=== PATIENT | female | born 1930 | race Caucasian/White ===

== ENCOUNTER 2018-10-16 13:18 | Inpatient (IN) | payer MEDICARE ==
[~2018-10-16] VITALS: Ht 160 cm; Wt 43.8 kg
--- NOTE | 2018-10-16 13:45 | NUR ---
DAVIDA RN: PT TRANSPORTED TO CT SCAN VIA [facility].
[2018-10-16] MEDS ORDERED: TRIA1TAB3 PO (13:47)
[2018-10-16] MEDS ORDERED: FLEC50TA25 PO (13:47)
[2018-10-16] MEDS ORDERED: DABI75CA3 PO (13:47)
[2018-10-16] MEDS ORDERED: ACET-1770 PO (13:48)
[2018-10-16] MEDS ORDERED: ACET-1757 PO (13:49)
--- NOTE | 2018-10-16 13:49 | NUR ---
DAVIDA RN: MED REC COMPLETED AND VERIFIED WITH DAUGHTER (RAMO).
[2018-10-16] MEDS ORDERED: ONDANSETRON 2MG/ML, 2ML ONE (13:52)
--- NOTE | 2018-10-16 13:56 | NUR ---
DAVIDA RN: PT MEDICATED PER EMAR. REPORT TO PRIMARY BRODY COLLAZO.
[2018-10-16] MEDS ORDERED: ONDANSETRON 2MG/ML, 2ML IVPush ONE (14:00)
[2018-10-16 14:20] LABS: BASOPHILS # (AUTO) 0.03 x10^3/uL (0-0.1); BASOPHILS % (AUTO) 1 % (0-1); EOSINOPHILS # (AUTO) 0.03 x10^3/uL (0-0.4); EOSINOPHILS % (AUTO) 0 % (1-7); LYMPHOCYTES # (AUTO) 1.18 x10^3/uL (1-3.4); LYMPHOCYTES % (AUTO) 16 % (22-44); MD NO; MEAN CORPUSCULAR HEMOGLOBIN 29.7 pg (27.0-34.8); MEAN CORPUSCULAR HGB CONC 33.2 g/dL (32.4-35.8); MEAN CORPUSCULAR VOLUME 89.7 fL (80-100); MEAN PLATELET VOLUME 6.9 fL (7.4-10.4); MONOCYTES # (AUTO) 0.44 x10^3/uL (0.2-0.8); MONOCYTES % (AUTO) 6 % (2-9); NEUTROPHILS # (AUTO) 5.66 x10^3/uL (1.8-6.8); NEUTROPHILS % (AUTO) 77 % (42-75); PLATELET COUNT 283 x10^3/uL (130-400); RED BLOOD COUNT 3.88 x10^6/uL (3.82-5.3); RED CELL DISTRIBUTION WIDTH 13.1 % (9.6-15.2)
--- NOTE | 2018-10-16 14:28 | NUR ---
PT RESTING QUIETLY ON BED. DAUGHTER & SON-IN-LAW BS. PER DAUGHTER: PT C/O AHYWOOD & VISION DIFFICULTY THEN SYNCOPAL EPISODE AT LUNCH, NO LOC, EMS CALLED, PT VOMITED. PT HAD DENTAL WORK THIS AM. WAS EATING LUNCH OUTSIDE IN THE SUN. PT DOZING - EASILY AWAKEND, ORIENTS X3, RESP EVEN & UNLABORED. C/O DIZZINESS AND NAUSEA. CARDIAC & VS MONITORING CONTINUING: NSR.
[2018-10-16 14:30] LABS: ALBUMIN 3.2 g/dL (3.4-5.0); ANION GAP 7 mmol/L (5-15); CALCIUM 9.2 mg/dL (8.5-10.1); CHLORIDE 101 mmol/L (98-107)
[2018-10-16 14:33] LABS: INTERNATIONAL NORMALIZED RATIO 1.02 (0.93-1.1); PROTHROMBIN TIME 10.7 Seconds (9.6-11.5)
[2018-10-16 14:34] LABS: ALANINE AMINOTRANSFERASE 18 U/L (12-78); ALKALINE PHOSPHATASE 42 U/L (45-117); BILIRUBIN,TOTAL 0.7 mg/dL (0.2-1.0); CREATININE 1.18 mg/dL (0.55-1.02); TOTAL PROTEIN 6.1 g/dL (6.4-8.2)
--- NOTE | 2018-10-16 16:31 | NUR ---
[facility] PTS TWO SONS IN ROOM.
--- NOTE | 2018-10-16 16:40 | NUR ---
PT REPORT TO BRODY HARRINGTON FOR ROOM 525
[2018-10-16] MEDS ORDERED: POTASSIUM CHLORIDE 20 MEQ TAB.ER.PRT PO ONE (17:30)
[2018-10-16] MEDS ORDERED: ONDANSETRON 2MG/ML, 2ML IVPush PRN (17:30)
[2018-10-16] MEDS ORDERED: DOCUSATE 100 MG CAPSULE PO PRN (17:30)
[2018-10-16] MEDS ORDERED: ACETAMINOPHEN 325 MG TABLET PO PRN (17:30)
[2018-10-16 17:36] VITALS: BP 169/67
[2018-10-16 18:01] VITALS: BP_SYST 101; BP_SYST 147; BP_DIAS 64; BP_DIAS 68
[2018-10-16 18:03] VITALS: BP 118/68
[2018-10-16] MEDS: SODIUM CHLORIDE 0.9% 1,000 ML IV SCH (18:23)
[2018-10-16 19:07] LABS: TROPONIN I < 0.015 ng/mL (0.000-0.045)
[2018-10-16 19:54] VITALS: BP 136/57
[2018-10-16 19:57] VITALS: BP 156/64
[2018-10-16 20:00] VITALS: BP 154/67
[2018-10-16] MEDS: ACETAMINOPHEN 500 MG TABLET PO SCH (21:47)
[2018-10-16 23:15] LABS: MICROSCOPIC AUTO
[2018-10-16 23:21] LABS: CULTURE INDICATED? YES
[2018-10-16 23:37] LABS: TROPONIN I < 0.015 ng/mL (0.000-0.045)
[2018-10-16] MEDS: CEFTRIAXONE PMX 1GM/50ML 50 ML IV SCH (23:47)
[2018-10-17] VITALS (7 sets, daily range): BP systolic 97–161; BP diastolic 60–73
[2018-10-17] MEDS: SODIUM CHLORIDE 0.9% 1,000 ML IV SCH (03:01)
[2018-10-17 05:26] LABS: BASOPHILS # (AUTO) 0.02 x10^3/uL (0-0.1); BASOPHILS % (AUTO) 0 % (0-1); EOSINOPHILS # (AUTO) 0.19 x10^3/uL (0-0.4); EOSINOPHILS % (AUTO) 2 % (1-7); LYMPHOCYTES # (AUTO) 1.66 x10^3/uL (1-3.4); LYMPHOCYTES % (AUTO) 22 % (22-44); MD NO; MEAN CORPUSCULAR HEMOGLOBIN 30.4 pg (27.0-34.8); MEAN CORPUSCULAR HGB CONC 33.3 g/dL (32.4-35.8); MEAN CORPUSCULAR VOLUME 91.3 fL (80-100); MEAN PLATELET VOLUME 7.3 fL (7.4-10.4); MONOCYTES # (AUTO) 0.64 x10^3/uL (0.2-0.8); MONOCYTES % (AUTO) 8 % (2-9); NEUTROPHILS # (AUTO) 5.13 x10^3/uL (1.8-6.8); NEUTROPHILS % (AUTO) 67 % (42-75); PLATELET COUNT 262 x10^3/uL (130-400); RED CELL DISTRIBUTION WIDTH 12.4 % (9.6-15.2)
[2018-10-17 05:35] LABS: CHLORIDE 103 mmol/L (98-107)
[2018-10-17 06:01] LABS: ALANINE AMINOTRANSFERASE 17 U/L (12-78); ALBUMIN 2.9 g/dL (3.4-5.0); ALKALINE PHOSPHATASE 40 U/L (45-117); ANION GAP 6 mmol/L (5-15); BILIRUBIN,TOTAL 0.4 mg/dL (0.2-1.0); CREATININE 0.87 mg/dL (0.55-1.02); TOTAL PROTEIN 5.7 g/dL (6.4-8.2)
[2018-10-17] MEDS: DABIGATRAN 75 MG CAPSULE PO SCH (08:33)
[2018-10-17] MEDS: ACETAMINOPHEN 500 MG TABLET PO SCH ×2 (08:33→20:08)
[2018-10-17] MEDS: FLECAINIDE 50MG TABLET PO SCH (08:34)
[2018-10-17] MEDS ORDERED: TRIAMTERENE-HCTZ 37.5/25 MG TABLET PO SCH (09:00)
[2018-10-17] MEDS ORDERED: POTASSIUM PHOSPHATE 22 MEQ in SODIUM CHLORIDE 0.9% 500 ML IV ONE (10:00)
[2018-10-17] MEDS ORDERED: MECLIZINE 12.5 MG TABLET PO PRN (13:30)
[2018-10-17] MEDS: LISINOPRIL 10 MG TABLET PO SCH ×2 (18:05→18:54)
[2018-10-17] MEDS ORDERED: LISINOPRIL 10 MG TABLET PO SCH (21:00)
[2018-10-18] VITALS (7 sets, daily range): BP systolic 95–161; BP diastolic 48–72
[2018-10-18] MEDS: CEFTRIAXONE PMX 1GM/50ML 50 ML IV SCH (00:04)
[2018-10-18 05:58] LABS: CHLORIDE 103 mmol/L (98-107)
[2018-10-18 06:03] LABS: ALANINE AMINOTRANSFERASE 15 U/L (12-78); ALBUMIN 2.9 g/dL (3.4-5.0); ALKALINE PHOSPHATASE 40 U/L (45-117); ANION GAP 5 mmol/L (5-15); BILIRUBIN,TOTAL 1.6 mg/dL (0.2-1.0); CREATININE 0.91 mg/dL (0.55-1.02); TOTAL PROTEIN 5.9 g/dL (6.4-8.2)
[2018-10-18] MEDS ORDERED: ZOSYN PER PHARMACY MC PRN (08:30)
[2018-10-18] MEDS: ACETAMINOPHEN 500 MG TABLET PO SCH ×2 (08:51→21:06)
[2018-10-18] MEDS: DABIGATRAN 75 MG CAPSULE PO SCH (08:51)
[2018-10-18] MEDS: FLECAINIDE 50MG TABLET PO SCH (08:52)
[2018-10-18] MEDS: LISINOPRIL 10 MG TABLET PO SCH ×2 (08:52→21:06)
[2018-10-18] MEDS ORDERED: PIPERACILLIN/TAZO/PMX 3.375GM 50 ML IV SCH (10:00)
[2018-10-18] MEDS: MIDODRINE 5 MG TABLET PO SCH ×2 (16:12→21:06)
[2018-10-18] MEDS: CEFDINIR 300 MG CAPSULE PO SCH (21:06)
[2018-10-19 02:53] VITALS: BP 161/62
[2018-10-19] MEDS: LISINOPRIL 10 MG TABLET PO SCH (08:35)
[2018-10-19] MEDS: FLECAINIDE 50MG TABLET PO SCH (08:35)
[2018-10-19] MEDS: CEFDINIR 300 MG CAPSULE PO SCH (08:36)
[2018-10-19] MEDS: ACETAMINOPHEN 500 MG TABLET PO SCH (08:36)
[2018-10-19] MEDS: DABIGATRAN 75 MG CAPSULE PO SCH (08:36)
[2018-10-19 08:50] VITALS: BP 165/65
[2018-10-19] MEDS: MIDODRINE 5 MG TABLET PO SCH (08:50)
[2018-10-19 10:10] VITALS: BP 135/61
[2018-10-19 10:15] VITALS: BP 144/61
[2018-10-19 10:17] VITALS: BP 146/58
[2018-10-19] MEDS ORDERED: CEFD300C37 PO ×2 (10:46)
[2018-10-19] MEDS ORDERED: MIDO5TAB9 PO ×2 (10:46)
[2018-10-19] MEDS ORDERED: LISI-167 PO ×2 (10:46)
[2018-10-20] MEDS ORDERED: CEFDINIR 300 MG CAPSULE PO SCH (09:00)
== END 2018-10-19 14:26 | disposition home or self-care (01) | DRG 682 ==
LOC: ED 15:05 → EDIP 15:15 → 5SO 17:41
PROVIDERS: ADMIT Internal Medicine; ATTEND Internal Medicine
PROC: 0T9B70Z Drainage of Bladder with Drainage Device, Via Natural or Artificial Opening (ICD-10-PCS; principal; 2018-10-16)
DX: N17.0 Acute kidney failure with tubular necrosis (principal); G93.41 Metabolic encephalopathy; D68.69 Other thrombophilia; E87.1 Hypo-osmolality and hyponatremia; N39.0 Urinary tract infection, site not specified; G90.9 Disorder of the autonomic nervous system, unspecified; I95.1 Orthostatic hypotension; B96.20 Unspecified Escherichia coli [E. coli] as the cause of diseases classified elsewhere; E83.39 Other disorders of phosphorus metabolism; E86.0 Dehydration; E87.6 Hypokalemia; I10 Essential (primary) hypertension; I25.10 Atherosclerotic heart disease of native coronary artery without angina pectoris; I48.91 Unspecified atrial fibrillation; M19.90 Unspecified osteoarthritis, unspecified site; M54.10 Radiculopathy, site unspecified; Z79.02 Long term (current) use of antithrombotics/antiplatelets; Z80.1 Family history of malignant neoplasm of trachea, bronchus and lung; Z87.891 Personal history of nicotine dependence
CPT/HCPCS: 0399T; 36415; 70450; 71045; 80053; 81001; 82533; 83735; 84100; 84443; 84484; 85025; 85610; 85730; 87077; 87086; 87186; 93005; 93306; 96374; 99285; G0378; J0696; J2405; J2543; J7030; J7040

== ENCOUNTER 2018-10-20 09:05 | Inpatient (IN) | payer MEDICARE ==
[~2018-10-20] VITALS: Ht 157.5 cm; Wt 49.0 kg
[~2018-10-20 09:05] MED LIST: ACET-1757 PO; ACET-1770 PO; CEFD300C37 PO; DABI75CA3 PO; FLEC50TA25 PO; LISI-167 PO; MIDO5TAB9 PO; TRIA1TAB3 PO
[2018-10-20] MEDS ORDERED: DILTIAZEM 5 MG/ML, 5ML IVPush STA ×2 (09:15→10:53)
[2018-10-20] MEDS ORDERED: DILTIAZEM 5 MG/ML, 5ML ONE ×2 (09:29→11:06)
[2018-10-20] MEDS ORDERED: ASPIRIN 81 MG TABLET CHEW PO ONE (09:30)
[2018-10-20] MEDS ORDERED: DABIGATRAN 150 MG CAPSULE PO ONE (09:30)
[2018-10-20] MEDS ORDERED: ASPIRIN 81 MG TABLET CHEW ONE (09:30)
[2018-10-20] MEDS ORDERED: SODIUM CHLORIDE FLUSH 10ML SYR IVF ONE (09:30)
--- NOTE | 2018-10-20 09:43 | NUR ---
PT BIB EMS FOR AFIB RVR RATE 140-180. PATIENT AWAKE, ALERT AND ORIENTED. ANSWEREING RN QUESTIONS. RECENTLY DC FOR UTI ON ABX, AFIB RVR. Jessica PERDOMO, CARDIAC MONITR APPLIED, PATIENT HAS DIARRHEA. HR 180S. BP STABLE. MEDICATED PER MD ORDERS. FAMILY AT BEDSIDE.
[2018-10-20 09:44] LABS: BASOPHILS # (AUTO) 0.08 x10^3/uL (0-0.1); BASOPHILS % (AUTO) 1 % (0-1); EOSINOPHILS # (AUTO) 0.11 x10^3/uL (0-0.4); EOSINOPHILS % (AUTO) 2 % (1-7); LYMPHOCYTES # (AUTO) 1.49 x10^3/uL (1-3.4); LYMPHOCYTES % (AUTO) 22 % (22-44); MD NO; MEAN CORPUSCULAR HEMOGLOBIN 30.6 pg (27.0-34.8); MEAN CORPUSCULAR HGB CONC 33.4 g/dL (32.4-35.8); MEAN CORPUSCULAR VOLUME 91.6 fL (80-100); MEAN PLATELET VOLUME 7.5 fL (7.4-10.4); MONOCYTES # (AUTO) 0.55 x10^3/uL (0.2-0.8); MONOCYTES % (AUTO) 8 % (2-9); NEUTROPHILS # (AUTO) 4.48 x10^3/uL (1.8-6.8); NEUTROPHILS % (AUTO) 67 % (42-75); PLATELET COUNT 282 x10^3/uL (130-400); RED BLOOD COUNT 4.35 x10^6/uL (3.82-5.3)
[2018-10-20 09:46] LABS: MICROSCOPIC NOT IND
[2018-10-20 09:47] LABS: CULTURE INDICATED? NO
--- NOTE | 2018-10-20 09:50 | NUR ---
PT RESTING COMFORTABLE, DENIES ANY PAIN HR DECREASED 90'S. BLANKET AND PILLOW GIVEN. FAMILY AT BS, VERBALIZED NO OTHER NEEDS AT THIS TIME
[2018-10-20 09:55] LABS: ALANINE AMINOTRANSFERASE 21 U/L (12-78); ALBUMIN 3.2 g/dL (3.4-5.0); ANION GAP 5 mmol/L (5-15); CALCIUM 9.4 mg/dL (8.5-10.1); CHLORIDE 102 mmol/L (98-107); CREATININE 0.86 mg/dL (0.55-1.02)
[2018-10-20 10:00] LABS: ALKALINE PHOSPHATASE 44 U/L (45-117); BILIRUBIN,TOTAL 0.4 mg/dL (0.2-1.0); TOTAL PROTEIN 6.4 g/dL (6.4-8.2); TROPONIN I < 0.015 ng/mL (0.000-0.045)
[2018-10-20] MEDS ORDERED: DABIGATRAN 75 MG CAPSULE PO ONE (10:00)
[2018-10-20] MEDS ORDERED: FLECAINIDE 50MG TABLET PO ONE (10:00)
--- NOTE | 2018-10-20 10:15 | NUR ---
CALLED PHARMACY FOR NEW DOSE OF PRADAXA
--- NOTE | 2018-10-20 10:39 | NUR ---
PT AMBULATED TO [facility] [place] WITH [place]IST. VOIDED AND BM
[2018-10-20 10:40] LABS: OCCULT BLOOD NEGATIVE (NEGATIVE)
[2018-10-20 10:50] LABS: CLOSTRIDIUM DIFFICILE ANTIGEN NEGATIVE; CLOSTRIDIUM DIFFICILE TOXIN NEGATIVE (Negative)
[2018-10-20] MEDS: DILTIAZEM 125 MG in SODIUM CHLORIDE 0.9% 100 ML IV SCH ×2 (11:19→21:06)
--- NOTE | 2018-10-20 11:25 | NUR ---
MEDICATED PER MD ORDER 16 MG OF DILT AND DILT GTT. HR IN 30S. MD AWARE, AT BEDSIDE. PACER PADS APPLIED. WAITING FOR FURTHER ORDERS. PT ALERT ORIENTED AND TALKING. PT FELT DIZZY AND WEAK
[2018-10-20] MEDS ORDERED: SODIUM CHLORIDE 0.9% 1,000 ML IV SCH (11:30)
[2018-10-20] MEDS ORDERED: SODIUM CHLORIDE 0.9%, 500ML IVBOLUS ONE (11:30)
[2018-10-20] MEDS: FLECAINIDE 50MG TABLET PO SCH ×2 (11:30→22:01)
--- NOTE | 2018-10-20 11:30 | NUR ---
500 ML BOLUS INFUSING. SECOND IV BEING ESTABLISHED. PT AWAKE AND ORIENTED. FAMILY AT BEDSIDE. HR IN 50S, ATROPINE AT BEDSIDE. PACE PADS APPLIED
--- NOTE | 2018-10-20 11:39 | NUR ---
DILT GTT STOPPED AT 1125
--- NOTE | 2018-10-20 11:57 | NUR ---
REPORT GIVEN HUEY. NO FURTHER QUESTIONS. PT READY FOR TRANSFER
[2018-10-20 12:07] LABS: TROPONIN I 0.016 ng/mL (0.000-0.045)
[2018-10-20 12:33] VITALS: BP 150/67
[2018-10-20] MEDS ORDERED: HEPARIN 5,000 UNITS/ML, 1ML IV PRN (13:00)
[2018-10-20] MEDS: HEPARIN 25,000 UNITS/500ML PMX 500 ML IV PRN (15:03)
[2018-10-20] MEDS: MIDODRINE 5 MG TABLET PO SCH ×2 (15:40→21:00)
[2018-10-20 17:46] LABS: TROPONIN I 0.027 ng/mL (0.000-0.045)
[2018-10-20 19:52] VITALS: BP 157/68
[2018-10-20] MEDS: ACETAMINOPHEN 500 MG TABLET PO SCH (21:06)
[2018-10-21 01:37] VITALS: BP 116/44
[2018-10-21 04:35] LABS: ALANINE AMINOTRANSFERASE 26 U/L (12-78); ALBUMIN 2.6 g/dL (3.4-5.0); ANION GAP 8 mmol/L (5-15); CALCIUM 8.9 mg/dL (8.5-10.1); CHLORIDE 107 mmol/L (98-107); CREATININE 0.93 mg/dL (0.55-1.02)
[2018-10-21 04:45] LABS: ALKALINE PHOSPHATASE 42 U/L (45-117); BILIRUBIN,TOTAL 0.2 mg/dL (0.2-1.0); TOTAL PROTEIN 5.5 g/dL (6.4-8.2)
[2018-10-21] MEDS: ASPIRIN 81 MG TABLET EC PO SCH (04:45)
[2018-10-21 04:57] LABS: BASOPHILS # (AUTO) 0.09 x10^3/uL (0-0.1); BASOPHILS % (AUTO) 1 % (0-1); EOSINOPHILS # (AUTO) 0.22 x10^3/uL (0-0.4); EOSINOPHILS % (AUTO) 3 % (1-7); LYMPHOCYTES # (AUTO) 2.07 x10^3/uL (1-3.4); LYMPHOCYTES % (AUTO) 28 % (22-44); MD NO; MEAN CORPUSCULAR HEMOGLOBIN 30.4 pg (27.0-34.8); MEAN CORPUSCULAR VOLUME 92.3 fL (80-100); MONOCYTES # (AUTO) 0.66 x10^3/uL (0.2-0.8); MONOCYTES % (AUTO) 9 % (2-9); NEUTROPHILS # (AUTO) 4.42 x10^3/uL (1.8-6.8); NEUTROPHILS % (AUTO) 59 % (42-75); PLATELET COUNT 241 x10^3/uL (130-400); RED BLOOD COUNT 3.57 x10^6/uL (3.82-5.3); RED CELL DISTRIBUTION WIDTH 13.3 % (9.6-15.2)
[2018-10-21 07:45] VITALS: BP 166/64
[2018-10-21] MEDS: ACETAMINOPHEN 500 MG TABLET PO SCH ×2 (09:14→20:27)
[2018-10-21] MEDS: MORPHINE SULFATE 4 MG/ML, 1ML IVPush PRN (10:06)
[2018-10-21 13:17] VITALS: BP 169/71
[2018-10-21] MEDS: FLECAINIDE 50MG TABLET PO SCH ×2 (13:51→23:08)
[2018-10-21 20:03] VITALS: BP 149/62
[2018-10-21] MEDS: HEPARIN 25,000 UNITS/500ML PMX 500 ML IV PRN (23:09)
[2018-10-22] VITALS (9 sets, daily range): BP systolic 85–179; BP diastolic 43–71
[2018-10-22 05:04] LABS: ALBUMIN 2.9 g/dL (3.4-5.0); ANION GAP 8 mmol/L (5-15); CALCIUM 9.5 mg/dL (8.5-10.1); CHLORIDE 103 mmol/L (98-107)
[2018-10-22 05:09] LABS: ALANINE AMINOTRANSFERASE 42 U/L (12-78); ALKALINE PHOSPHATASE 46 U/L (45-117); BILIRUBIN,TOTAL 0.7 mg/dL (0.2-1.0); CREATININE 0.95 mg/dL (0.55-1.02); TOTAL PROTEIN 6.2 g/dL (6.4-8.2)
[2018-10-22 05:14] LABS: BASOPHILS # (AUTO) 0.06 x10^3/uL (0-0.1); BASOPHILS % (AUTO) 1 % (0-1); EOSINOPHILS # (AUTO) 0.31 x10^3/uL (0-0.4); EOSINOPHILS % (AUTO) 4 % (1-7); LYMPHOCYTES # (AUTO) 2.24 x10^3/uL (1-3.4); LYMPHOCYTES % (AUTO) 29 % (22-44); MD NO; MEAN CORPUSCULAR HEMOGLOBIN 30.7 pg (27.0-34.8); MEAN CORPUSCULAR HGB CONC 33.8 g/dL (32.4-35.8); MEAN CORPUSCULAR VOLUME 90.7 fL (80-100); MEAN PLATELET VOLUME 7.9 fL (7.4-10.4); MONOCYTES # (AUTO) 0.76 x10^3/uL (0.2-0.8); MONOCYTES % (AUTO) 10 % (2-9); NEUTROPHILS % (AUTO) 57 % (42-75); PLATELET COUNT 271 x10^3/uL (130-400); RED BLOOD COUNT 3.73 x10^6/uL (3.82-5.3); RED CELL DISTRIBUTION WIDTH 13.6 % (9.6-15.2)
[2018-10-22] MEDS: ASPIRIN 81 MG TABLET EC PO SCH (06:00)
[2018-10-22] MEDS ORDERED: REGADENOSON 0.4 MG/5 ML SYRINGE ONE (09:01)
[2018-10-22] MEDS ORDERED: OMNIPAQUE 350 MG/ML, 100ML BOTTLE ONE (09:34)
[2018-10-22] MEDS ORDERED: MAGNESIUM CITRATE 300ML ORAL SOL PO ONE ×2 (10:30→17:30)
[2018-10-22] MEDS: LISINOPRIL 5 MG TABLET PO SCH (11:37)
[2018-10-22] MEDS: ACETAMINOPHEN 500 MG TABLET PO SCH ×2 (11:37→20:51)
[2018-10-22] MEDS: AMLODIPINE 5 MG TABLET PO SCH (11:37)
[2018-10-22] MEDS ORDERED: SODIUM CHLORIDE 0.9%, 500ML IVBOLUS ONE (20:30)
[2018-10-22] MEDS: APIXABAN 5 MG TABLET PO SCH (20:51)
[2018-10-22] MEDS ORDERED: APIXABAN 5 MG TABLET PO SCH (21:00)
[2018-10-23] VITALS (7 sets, daily range): BP systolic 103–133; BP diastolic 44–72
[2018-10-23] MEDS: MORPHINE SULFATE 4 MG/ML, 1ML IVPush PRN ×4 (02:57→17:40)
[2018-10-23] MEDS ORDERED: DIPHENHYDRAMINE 25 MG CAPSULE PO PRN (05:00)
[2018-10-23 06:40] LABS: ALBUMIN 2.8 g/dL (3.4-5.0); ANION GAP 6 mmol/L (5-15); CALCIUM 9.3 mg/dL (8.5-10.1); CHLORIDE 102 mmol/L (98-107)
[2018-10-23 06:44] LABS: ALANINE AMINOTRANSFERASE 45 U/L (12-78); ALKALINE PHOSPHATASE 39 U/L (45-117); BILIRUBIN,TOTAL 0.4 mg/dL (0.2-1.0); CREATININE 0.99 mg/dL (0.55-1.02); TOTAL PROTEIN 5.6 g/dL (6.4-8.2)
[2018-10-23 07:42] LABS: BASOPHILS # (AUTO) 0.05 x10^3/uL (0-0.1); BASOPHILS % (AUTO) 1 % (0-1); EOSINOPHILS # (AUTO) 0.04 x10^3/uL (0-0.4); EOSINOPHILS % (AUTO) 1 % (1-7); LYMPHOCYTES % (AUTO) 16 % (22-44); MD NO; MEAN CORPUSCULAR HEMOGLOBIN 29.4 pg (27.0-34.8); MEAN CORPUSCULAR HGB CONC 32.6 g/dL (32.4-35.8); MEAN CORPUSCULAR VOLUME 90.2 fL (80-100); MEAN PLATELET VOLUME 7.2 fL (7.4-10.4); MONOCYTES # (AUTO) 0.66 x10^3/uL (0.2-0.8); MONOCYTES % (AUTO) 8 % (2-9); NEUTROPHILS # (AUTO) 6.25 x10^3/uL (1.8-6.8); NEUTROPHILS % (AUTO) 75 % (42-75); PLATELET COUNT 268 x10^3/uL (130-400); RED CELL DISTRIBUTION WIDTH 13.5 % (9.6-15.2)
[2018-10-23] MEDS: ACETAMINOPHEN 500 MG TABLET PO SCH ×2 (09:00→21:02)
[2018-10-23] MEDS: APIXABAN 5 MG TABLET PO SCH (09:00)
[2018-10-23] MEDS ORDERED: DABIGATRAN 75 MG CAPSULE PO SCH (09:00)
[2018-10-23] MEDS: AMLODIPINE 5 MG TABLET PO SCH (09:00)
[2018-10-23] MEDS: LISINOPRIL 5 MG TABLET PO SCH (09:00)
[2018-10-23] MEDS: ASPIRIN 81 MG TABLET EC PO SCH (09:00)
[2018-10-23] MEDS: AMIODARONE 200 MG TABLET PO SCH ×2 (10:15→21:02)
[2018-10-24 02:52] VITALS: BP 107/54
[2018-10-24] MEDS: ACETAMINOPHEN 325 MG TABLET PO PRN (06:48)
[2018-10-24 07:45] VITALS: BP 109/63
[2018-10-24] MEDS: MORPHINE SULFATE 4 MG/ML, 1ML IVPush PRN ×3 (07:53→21:34)
[2018-10-24] MEDS: AMIODARONE 200 MG TABLET PO SCH ×2 (07:53→21:34)
[2018-10-24] MEDS: AMLODIPINE 5 MG TABLET PO SCH (09:00)
[2018-10-24] MEDS: LISINOPRIL 5 MG TABLET PO SCH (09:00)
[2018-10-24 14:08] VITALS: BP 108/41
[2018-10-24 18:50] VITALS: BP 109/45
[2018-10-24 21:28] VITALS: BP 117/51
[2018-10-24] MEDS: GUAIFENESIN/DM 200-20MG, 10ML UDC PO PRN (21:32)
[2018-10-25 01:37] VITALS: BP 101/49
[2018-10-25] MEDS: ACETAMINOPHEN 325 MG TABLET PO PRN (01:43)
[2018-10-25 02:58] VITALS: BP 111/51
[2018-10-25] MEDS: MORPHINE SULFATE 4 MG/ML, 1ML IVPush PRN ×4 (03:06→20:22)
[2018-10-25 07:51] VITALS: BP 100/38
[2018-10-25] MEDS: AMLODIPINE 5 MG TABLET PO SCH (08:58)
[2018-10-25] MEDS: AMIODARONE 200 MG TABLET PO SCH ×2 (08:58→20:22)
[2018-10-25] MEDS: LISINOPRIL 5 MG TABLET PO SCH (08:59)
[2018-10-25 09:10] VITALS: BP 105/46
[2018-10-25] MEDS ORDERED: SODIUM CHLORIDE 0.9%, 250ML IVBOLUS ONE (09:30)
[2018-10-25] MEDS: GUAIFENESIN/DM 200-20MG, 10ML UDC PO PRN (09:39)
[2018-10-25 13:07] VITALS: BP 107/46
[2018-10-25] MEDS: GUAIFENESIN/DM 200-20MG, 10ML UDC PO SCH ×2 (14:16→20:21)
[2018-10-25 20:16] VITALS: BP 121/63
[2018-10-26 02:41] VITALS: BP 120/47
[2018-10-26] MEDS: GUAIFENESIN/DM 200-20MG, 10ML UDC PO SCH ×4 (02:47→21:36)
[2018-10-26] MEDS: MORPHINE SULFATE 4 MG/ML, 1ML IVPush PRN (02:55)
[2018-10-26] MEDS: AMIODARONE 200 MG TABLET PO SCH ×2 (09:38→21:36)
[2018-10-26] MEDS: ACETAMINOPHEN 325 MG TABLET PO PRN ×3 (09:38→21:36)
[2018-10-26] MEDS: AMLODIPINE 5 MG TABLET PO SCH (09:38)
[2018-10-26] MEDS: LISINOPRIL 5 MG TABLET PO SCH (09:38)
[2018-10-26 09:44] VITALS: BP 106/49
[2018-10-26 15:28] VITALS: BP 93/43
[2018-10-26 15:38] VITALS: BP 105/50
[2018-10-26 20:07] VITALS: BP 127/63
[2018-10-27 03:20] VITALS: BP 133/56
[2018-10-27] MEDS: ACETAMINOPHEN 325 MG TABLET PO PRN ×2 (03:48→12:20)
[2018-10-27] MEDS: GUAIFENESIN/DM 200-20MG, 10ML UDC PO SCH ×4 (03:48→21:24)
[2018-10-27 07:30] VITALS: BP 128/55
[2018-10-27] MEDS: MORPHINE SULFATE 4 MG/ML, 1ML IVPush PRN (07:55)
[2018-10-27] MEDS: ONDANSETRON 2MG/ML, 2ML IVPush PRN (08:00)
[2018-10-27 09:07] LABS: ALANINE AMINOTRANSFERASE 43 U/L (12-78); ALBUMIN 2.3 g/dL (3.4-5.0); ANION GAP 6 mmol/L (5-15); CALCIUM 9.1 mg/dL (8.5-10.1); CHLORIDE 96 mmol/L (98-107); CREATININE 0.86 mg/dL (0.55-1.02)
[2018-10-27 09:09] LABS: ALKALINE PHOSPHATASE 60 U/L (45-117); BILIRUBIN,TOTAL 0.7 mg/dL (0.2-1.0); TOTAL PROTEIN 5.6 g/dL (6.4-8.2)
[2018-10-27] MEDS: AMLODIPINE 5 MG TABLET PO SCH (10:49)
[2018-10-27] MEDS: AMIODARONE 200 MG TABLET PO SCH ×2 (10:49→21:23)
[2018-10-27] MEDS: LISINOPRIL 5 MG TABLET PO SCH (10:51)
[2018-10-27 13:29] VITALS: BP 103/50
[2018-10-27 13:35] LABS: O2 FLOW 11 L/min
[2018-10-27] MEDS ORDERED: FUROSEMIDE 20 MG/2 ML IV ONE ×2 (14:00→14:30)
[2018-10-27 21:12] VITALS: BP 103/50
[2018-10-28 01:36] VITALS: BP 112/54
[2018-10-28] MEDS: GUAIFENESIN/DM 200-20MG, 10ML UDC PO SCH ×4 (05:35→21:33)
[2018-10-28 05:45] LABS: CHLORIDE 94 mmol/L (98-107)
[2018-10-28 05:50] LABS: ANION GAP 8 mmol/L (5-15)
[2018-10-28 08:18] VITALS: BP 109/49
[2018-10-28] MEDS: NEUTRA PHOS K 250 MG TABLET PO SCH ×3 (08:27→21:32)
[2018-10-28] MEDS: LISINOPRIL 5 MG TABLET PO SCH (08:28)
[2018-10-28] MEDS: AMIODARONE 200 MG TABLET PO SCH (08:28)
[2018-10-28] MEDS ORDERED: FUROSEMIDE 40 MG/4 ML IV SCH (09:00)
[2018-10-28] MEDS: AMLODIPINE 5 MG TABLET PO SCH (10:29)
[2018-10-28 11:00] VITALS: BP 100/60
[2018-10-28] MEDS: CEFTRIAXONE PMX 1GM/50ML 50 ML IV SCH (11:43)
[2018-10-28] MEDS: DOXYCYCLINE 100MG TABLET PO SCH ×2 (11:43→21:32)
[2018-10-28 13:21] VITALS: BP 105/51
[2018-10-28] MEDS: ONDANSETRON 2MG/ML, 2ML IVPush PRN (15:45)
[2018-10-28 15:51] VITALS: BP 122/61
[2018-10-28] MEDS: FUROSEMIDE 40 MG/4 ML IV SCH (18:18)
[2018-10-28] MEDS: ACETAMINOPHEN 325 MG TABLET PO PRN (18:36)
[2018-10-28 20:01] VITALS: BP 130/62
[2018-10-29] MEDS: GUAIFENESIN/DM 200-20MG, 10ML UDC PO SCH ×4 (03:17→20:43)
[2018-10-29 03:23] VITALS: BP 120/60
[2018-10-29 06:06] LABS: BASOPHILS # (AUTO) 0.03 x10^3/uL (0-0.1); BASOPHILS % (AUTO) 0 % (0-1); EOSINOPHILS # (AUTO) 0.23 x10^3/uL (0-0.4); EOSINOPHILS % (AUTO) 2 % (1-7); LYMPHOCYTES # (AUTO) 1.04 x10^3/uL (1-3.4); LYMPHOCYTES % (AUTO) 10 % (22-44); MD NO; MEAN CORPUSCULAR HEMOGLOBIN 30.2 pg (27.0-34.8); MEAN CORPUSCULAR HGB CONC 33.4 g/dL (32.4-35.8); MEAN CORPUSCULAR VOLUME 90.4 fL (80-100); MEAN PLATELET VOLUME 7.4 fL (7.4-10.4); MONOCYTES # (AUTO) 1.01 x10^3/uL (0.2-0.8); MONOCYTES % (AUTO) 10 % (2-9); NEUTROPHILS # (AUTO) 8.35 x10^3/uL (1.8-6.8); NEUTROPHILS % (AUTO) 78 % (42-75); PLATELET COUNT 467 x10^3/uL (130-400); RED BLOOD COUNT 2.93 x10^6/uL (3.82-5.3)
[2018-10-29 06:55] VITALS: BP 108/47
[2018-10-29] MEDS: FUROSEMIDE 40 MG/4 ML IV SCH (07:57)
[2018-10-29 08:28] LABS: ANION GAP 8 mmol/L (5-15); CALCIUM 9.4 mg/dL (8.5-10.1); CHLORIDE 91 mmol/L (98-107); CREATININE 1.15 mg/dL (0.55-1.02)
[2018-10-29 08:35] VITALS: BP 106/56
[2018-10-29] MEDS ORDERED: AMLODIPINE 2.5 MG TABLET PO SCH (09:00)
[2018-10-29] MEDS ORDERED: FILTER 0.22 MICRON FOR AMIODARONE IV PRN (09:00)
[2018-10-29] MEDS ORDERED: AMIODARONE 150 MG in DEXTROSE 5% 100 ML IV ONE (09:00)
[2018-10-29] MEDS ORDERED: AMIODARONE IN D5W 100 ML IV ONE (09:00)
[2018-10-29] MEDS: DOXYCYCLINE 100MG TABLET PO SCH ×2 (09:09→20:42)
[2018-10-29] MEDS: AMIODARONE 200 MG TABLET PO SCH (09:09)
[2018-10-29] MEDS: NEUTRA PHOS K 250 MG TABLET PO SCH ×3 (09:09→20:42)
[2018-10-29] MEDS: ACETAMINOPHEN 325 MG TABLET PO PRN ×2 (09:19→15:10)
[2018-10-29 10:10] VITALS: BP 109/55
[2018-10-29] MEDS ORDERED: DIGOXIN 0.25 MG/ML, 2ML IVPush ONE (10:30)
[2018-10-29] MEDS: CEFTRIAXONE PMX 1GM/50ML 50 ML IV SCH (11:51)
[2018-10-29 12:17] VITALS: BP 102/48
[2018-10-29 20:37] VITALS: BP 128/51
[2018-10-30 01:19] VITALS: BP_SYST 108; BP_SYST 112; BP_DIAS 66; BP_DIAS 70
[2018-10-30] MEDS: GUAIFENESIN/DM 200-20MG, 10ML UDC PO SCH ×4 (04:00→21:05)
[2018-10-30 05:14] LABS: ANION GAP 8 mmol/L (5-15); CALCIUM 9.2 mg/dL (8.5-10.1); CHLORIDE 91 mmol/L (98-107)
[2018-10-30] MEDS ORDERED: MAGNESIUM SULFATE PMX 2GM/50ML 50 ML IV ONE (08:30)
[2018-10-30] MEDS ORDERED: AMLODIPINE 2.5 MG TABLET PO SCH (09:00)
[2018-10-30] MEDS: FUROSEMIDE 40 MG TABLET PO SCH (09:04)
[2018-10-30] MEDS: DOXYCYCLINE 100MG TABLET PO SCH ×2 (09:04→21:05)
[2018-10-30] MEDS: NEUTRA PHOS K 250 MG TABLET PO SCH ×3 (09:05→21:05)
[2018-10-30] MEDS: AMIODARONE 200 MG TABLET PO SCH (09:05)
[2018-10-30 09:31] VITALS: BP 137/54
[2018-10-30] MEDS: CEFTRIAXONE PMX 1GM/50ML 50 ML IV SCH (12:03)
[2018-10-30 14:40] VITALS: BP 124/57
[2018-10-30] MEDS: ACETAMINOPHEN 325 MG TABLET PO PRN (16:12)
[2018-10-30 20:38] VITALS: BP 131/69
[2018-10-31 02:02] VITALS: BP 140/61
[2018-10-31] MEDS: GUAIFENESIN/DM 200-20MG, 10ML UDC PO SCH ×4 (04:00→21:12)
[2018-10-31 05:17] LABS: ALANINE AMINOTRANSFERASE 193 U/L (12-78); ALBUMIN 2.2 g/dL (3.4-5.0); ANION GAP 7 mmol/L (5-15); CALCIUM 9.1 mg/dL (8.5-10.1); CHLORIDE 90 mmol/L (98-107); CREATININE 0.81 mg/dL (0.55-1.02)
[2018-10-31 05:20] LABS: ALKALINE PHOSPHATASE 124 U/L (45-117); BILIRUBIN,TOTAL 0.6 mg/dL (0.2-1.0); TOTAL PROTEIN 5.8 g/dL (6.4-8.2)
[2018-10-31 08:25] VITALS: BP 137/54
[2018-10-31] MEDS: FUROSEMIDE 40 MG TABLET PO SCH (09:12)
[2018-10-31] MEDS: NEUTRA PHOS K 250 MG TABLET PO SCH ×3 (09:12→21:12)
[2018-10-31] MEDS: AMIODARONE 200 MG TABLET PO SCH (09:13)
[2018-10-31 15:40] VITALS: BP 115/54
[2018-10-31 20:19] VITALS: BP 156/72
[2018-10-31 21:26] VITALS: BP 150/55
[2018-11-01 01:31] VITALS: BP 135/63
[2018-11-01] MEDS: GUAIFENESIN/DM 200-20MG, 10ML UDC PO SCH ×4 (04:00→21:30)
[2018-11-01 05:34] LABS: ALBUMIN 2.1 g/dL (3.4-5.0); ANION GAP 8 mmol/L (5-15); CHLORIDE 91 mmol/L (98-107)
[2018-11-01 05:38] LABS: ALANINE AMINOTRANSFERASE 146 U/L (12-78); ALKALINE PHOSPHATASE 100 U/L (45-117); BILIRUBIN,TOTAL 0.6 mg/dL (0.2-1.0); CREATININE 0.82 mg/dL (0.55-1.02); TOTAL PROTEIN 5.4 g/dL (6.4-8.2)
[2018-11-01 07:11] VITALS: BP 148/61
[2018-11-01] MEDS: AMIODARONE 200 MG TABLET PO SCH (08:41)
[2018-11-01] MEDS: NEUTRA PHOS K 250 MG TABLET PO SCH ×3 (08:42→16:30)
[2018-11-01] MEDS: FUROSEMIDE 40 MG TABLET PO SCH (08:42)
[2018-11-01 14:39] VITALS: BP 144/56
[2018-11-01 21:04] VITALS: BP 129/50
[2018-11-02 01:18] VITALS: BP 138/53
[2018-11-02] MEDS: GUAIFENESIN/DM 200-20MG, 10ML UDC PO SCH ×4 (04:49→21:54)
[2018-11-02 07:00] LABS: ALBUMIN 2.1 g/dL (3.4-5.0); ANION GAP 7 mmol/L (5-15); CALCIUM 9.4 mg/dL (8.5-10.1); CHLORIDE 94 mmol/L (98-107)
[2018-11-02 07:03] LABS: ALANINE AMINOTRANSFERASE 126 U/L (12-78); ALKALINE PHOSPHATASE 100 U/L (45-117); BILIRUBIN,TOTAL 0.8 mg/dL (0.2-1.0); CREATININE 0.82 mg/dL (0.55-1.02); TOTAL PROTEIN 5.5 g/dL (6.4-8.2)
[2018-11-02] MEDS: FUROSEMIDE 40 MG TABLET PO SCH (09:41)
[2018-11-02] MEDS: AMIODARONE 200 MG TABLET PO SCH (09:41)
[2018-11-02] MEDS: NEUTRA PHOS K 250 MG TABLET PO SCH ×3 (09:42→16:33)
[2018-11-02 12:45] VITALS: BP 116/37
[2018-11-02 18:55] VITALS: BP 138/64
[2018-11-03 00:39] VITALS: BP 124/60
[2018-11-03] MEDS: GUAIFENESIN/DM 200-20MG, 10ML UDC PO SCH ×3 (06:25→17:30)
[2018-11-03 07:25] VITALS: BP 149/74
[2018-11-03] MEDS: FUROSEMIDE 40 MG TABLET PO SCH (09:03)
[2018-11-03] MEDS: AMIODARONE 200 MG TABLET PO SCH (09:03)
[2018-11-03] MEDS: NEUTRA PHOS K 250 MG TABLET PO SCH ×3 (09:03→17:29)
[2018-11-03] MEDS ORDERED: MECLIZINE 25 MG TABLET PO PRN (09:30)
[2018-11-03 10:13] LABS: INTERNATIONAL NORMALIZED RATIO 1.03 (0.93-1.1); PROTHROMBIN TIME 10.8 Seconds (9.6-11.5)
[2018-11-03] MEDS ORDERED: LIDOCAINE 1%, 10ML ONE ×2 (10:16)
[2018-11-03] MEDS ORDERED: FURO-93 PO (13:49)
[2018-11-03] MEDS ORDERED: ONDA4TAB13 SL (13:49)
[2018-11-03] MEDS ORDERED: ACET325T26 PO (13:49)
[2018-11-03] MEDS ORDERED: AMIO200T42 PO (13:49)
[2018-11-03] MEDS ORDERED: POTA10TA31 PO (13:49)
[2018-11-03] MEDS ORDERED: MECL25TA4 PO (13:49)
[2018-11-03 14:00] VITALS: BP 156/68
[2018-11-03] MEDS ORDERED: POLY17PO5 PO (14:09)
[2018-11-03 18:33] VITALS: BP 150/61
[2018-11-04] MEDS: GUAIFENESIN/DM 200-20MG, 10ML UDC PO SCH ×4 (00:01→17:41)
[2018-11-04 00:06] VITALS: BP 150/63
[2018-11-04 06:54] VITALS: BP 146/64
[2018-11-04] MEDS: NEUTRA PHOS K 250 MG TABLET PO SCH ×3 (08:15→17:41)
[2018-11-04] MEDS: FUROSEMIDE 40 MG TABLET PO SCH (08:15)
[2018-11-04] MEDS: AMIODARONE 200 MG TABLET PO SCH (08:15)
[2018-11-04 08:20] LABS: ALANINE AMINOTRANSFERASE 79 U/L (12-78); ALBUMIN 2.2 g/dL (3.4-5.0); ANION GAP 8 mmol/L (5-15); CALCIUM 9.1 mg/dL (8.5-10.1); CHLORIDE 96 mmol/L (98-107); CREATININE 0.86 mg/dL (0.55-1.02)
[2018-11-04 08:22] LABS: ALKALINE PHOSPHATASE 89 U/L (45-117); BILIRUBIN,TOTAL 0.6 mg/dL (0.2-1.0); TOTAL PROTEIN 5.6 g/dL (6.4-8.2)
[2018-11-04 08:37] LABS: BASOPHILS # (AUTO) 0.06 x10^3/uL (0-0.1); BASOPHILS % (AUTO) 1 % (0-1); EOSINOPHILS # (AUTO) 0.27 x10^3/uL (0-0.4); EOSINOPHILS % (AUTO) 3 % (1-7); LYMPHOCYTES % (AUTO) 16 % (22-44); MD SCAN; MEAN CORPUSCULAR HEMOGLOBIN 29.4 pg (27.0-34.8); MEAN CORPUSCULAR HGB CONC 33.5 g/dL (32.4-35.8); MEAN CORPUSCULAR VOLUME 87.9 fL (80-100); MEAN PLATELET VOLUME 6.3 fL (7.4-10.4); MONOCYTES # (AUTO) 1.14 x10^3/uL (0.2-0.8); MONOCYTES % (AUTO) 10 % (2-9); NEUTROPHILS # (AUTO) 7.74 x10^3/uL (1.8-6.8); NEUTROPHILS % (AUTO) 70 % (42-75); PLATELET COUNT 841 x10^3/uL (130-400); RED BLOOD COUNT 2.91 x10^6/uL (3.82-5.3); RED CELL DISTRIBUTION WIDTH 15.5 % (9.6-15.2)
[2018-11-04 12:57] VITALS: BP 111/42
[2018-11-04 19:35] VITALS: BP 128/57
[2018-11-05 00:14] VITALS: BP 161/70
[2018-11-05] MEDS: GUAIFENESIN/DM 200-20MG, 10ML UDC PO SCH ×3 (00:14→12:34)
[2018-11-05 07:04] VITALS: BP 150/56
[2018-11-05] MEDS: FUROSEMIDE 40 MG TABLET PO SCH (08:08)
[2018-11-05] MEDS: NEUTRA PHOS K 250 MG TABLET PO SCH ×2 (08:08→12:34)
[2018-11-05] MEDS: AMIODARONE 200 MG TABLET PO SCH (08:08)
[2018-11-05 12:53] VITALS: BP 143/52
== END 2018-11-05 17:42 | DRG 73 ==
LOC: ED 11:07 → 5SO 11:08 → ED 11:52 → 5SO 12:20 → ED 12:20 → 5SO 10-23 17:16 → 4EST 11-01 19:51
PROVIDERS: ADMIT Internal Medicine; ATTEND Internal Medicine
PROC: 30233N1 Transfusion of Nonautologous Red Blood Cells into Peripheral Vein, Percutaneous Approach (ICD-10-PCS; 2018-10-25)
PROC: 0W9B3ZZ Drainage of Left Pleural Cavity, Percutaneous Approach (ICD-10-PCS; principal; 2018-11-03)
DX: G90.9 Disorder of the autonomic nervous system, unspecified (principal); J69.0 Pneumonitis due to inhalation of food and vomit; J96.01 Acute respiratory failure with hypoxia; E43 Unspecified severe protein-calorie malnutrition; I50.31 Acute diastolic (congestive) heart failure; D68.69 Other thrombophilia; E87.1 Hypo-osmolality and hyponatremia; Z68.1 Body mass index [BMI] 19.9 or less, adult; I11.0 Hypertensive heart disease with heart failure; I48.0 Paroxysmal atrial fibrillation; M19.90 Unspecified osteoarthritis, unspecified site; X58.XXXA Exposure to other specified factors, initial encounter; D64.9 Anemia, unspecified; E83.42 Hypomagnesemia; I25.10 Atherosclerotic heart disease of native coronary artery without angina pectoris; I73.9 Peripheral vascular disease, unspecified; K59.00 Constipation, unspecified; Z79.01 Long term (current) use of anticoagulants; Z79.02 Long term (current) use of antithrombotics/antiplatelets; Z88.0 Allergy status to penicillin; Z79.82 Long term (current) use of aspirin; Z87.891 Personal history of nicotine dependence; Z91.14 Patient's other noncompliance with medication regimen; Y93.89 Activity, other specified; Y92.89 Other specified places as the place of occurrence of the external cause; M79.81 Nontraumatic hematoma of soft tissue
CPT/HCPCS: 32555; 36415; 36430; 36600; 71045; 74018; 74176; 74177; 74230; 78452; 78582; 80048; 80053; 81003; 82272; 82803; 83735; 83880; 84100; 84443; 84484; 85014; 85018; 85025; 85379; 85520; 85610; 86850; 86900; 86923; 87324; 93005; 93017; 96374; 96375; G0378; J0696; J1644; J1940; J2405; J2785; Q9967; A9502; A9540; A9558; C9898; J0282; J1160; J2270; J3475; J7030; J7040; J7050; P9016

== ENCOUNTER 2019-03-14 18:44 | Emergency (ER) | payer MEDICARE ==
[~2019-03-14] VITALS: Ht 157.5 cm; Wt 46.9 kg
[~2019-03-14 18:44] MED LIST changes: -ACET-1757 PO; +ACET-2065 PO; +ACET325T26 PO; +AMIO200T42 PO; +FURO-93 PO; +MECL25TA4 PO; +ONDA4TAB13 SL; +POLY17PO5 PO; +POTA10TA31 PO
[2019-03-14 20:10] VITALS: BP 112/47
--- NOTE | 2019-03-14 20:11 | NUR ---
PT TO TRIAGE, PA AT PT'S SIDE FOR EVAL, VSS
--- NOTE | 2019-03-14 20:37 | NUR ---
PT TO ROOM FROM LOBBY
== END 2019-03-14 21:33 | disposition home or self-care (01) ==
LOC: ED 21:30
DX: T78.3XXA Angioneurotic edema, initial encounter (principal); I10 Essential (primary) hypertension; I48.91 Unspecified atrial fibrillation; M19.90 Unspecified osteoarthritis, unspecified site
CPT/HCPCS: 99281

== ENCOUNTER 2019-03-25 14:40 | Outpatient (CLI) | payer MEDICARE | END 2019-03-25 23:59 | disposition home or self-care (01) | LOC: CFH 14:40 | PROVIDERS: ATTEND Nurse Practitioner Family | DX: Z02.9 Encounter for administrative examinations, unspecified (principal) ==

== ENCOUNTER 2019-03-26 08:17 | Outpatient (CLI) | payer MEDICARE ==
[2019-03-26 13:31] LABS: CREATININE 1.67 mg/dL (0.55-1.02); FOLATE LEVEL 9.5 ng/mL (3.1-17.5)
== END 2019-03-26 23:59 | disposition home or self-care (01) ==
LOC: CFH 08:17
PROVIDERS: ATTEND Nurse Practitioner Family
DX: G45.0 Vertebro-basilar artery syndrome (principal)
CPT/HCPCS: 36415; 82565; 82607; 82746; 84252; 84520

== ENCOUNTER → 2019-04-24 | Outpatient (CLI) | payer MEDICARE ==
[~2019-04-24] MED LIST changes: +MECL-101 PO; -MECL25TA4 PO
[2019-04-24 15:27] LABS: CREATININE 1.64 mg/dL (0.55-1.02)
== END | disposition home or self-care (01) ==
LOC: RAD 14:31
PROVIDERS: ATTEND Nurse Practitioner Family
DX: I67.82 Cerebral ischemia (principal); G45.0 Vertebro-basilar artery syndrome; G31.89 Other specified degenerative diseases of nervous system; R90.82 White matter disease, unspecified
CPT/HCPCS: 36415; 70551; 82565

== ENCOUNTER 2019-11-30 14:22 | Emergency (ER) | payer MEDICARE ==
[~2019-11-30] VITALS: Ht 157.5 cm; Wt 50.0 kg
--- NOTE | 2019-11-30 14:46 | NUR ---
castro. report received from ems. pt c/o sudden onset of dzy with nausea after pt had lunch with her daughter. no loc/trauma/fall. pt's aox4. resps even and unlabored. hx of a-fib. a-fib rate 70's on residential monitor at this time. all monitors in place. call light within reach. pt's daughter at bedside at this time.
--- NOTE | 2019-11-30 14:48 | NUR ---
ekg done at bedside at this time.
--- NOTE | 2019-11-30 16:07 | NUR ---
pt amb to br and back to room with steady gait. urine collected and ua sent.
[2019-11-30 16:10] LABS: BASOPHILS # (AUTO) 0.06 x10^3/uL (0-0.1); BASOPHILS % (AUTO) 1 % (0-1); EOSINOPHILS # (AUTO) 0.06 x10^3/uL (0-0.4); EOSINOPHILS % (AUTO) 1 % (1-7); LYMPHOCYTES # (AUTO) 1.03 x10^3/uL (1-3.4); LYMPHOCYTES % (AUTO) 13 % (22-44); MD NO; MEAN CORPUSCULAR HGB CONC 33.7 g/dL (32.4-35.8); MONOCYTES # (AUTO) 0.43 x10^3/uL (0.2-0.8); MONOCYTES % (AUTO) 5 % (2-9); NEUTROPHILS # (AUTO) 6.62 x10^3/uL (1.8-6.8); NEUTROPHILS % (AUTO) 81 % (42-75); PLATELET COUNT 289 x10^3/uL (130-400); RED CELL DISTRIBUTION WIDTH 13.6 % (9.6-15.2)
[2019-11-30 16:11] VITALS: BP 135/40
[2019-11-30 16:18] LABS: ALANINE AMINOTRANSFERASE 19 U/L (12-78); ANION GAP 6 mmol/L (5-15); CALCIUM 10.5 mg/dL (8.5-10.1); CHLORIDE 110 mmol/L (98-107); CREATININE 1.77 mg/dL (0.55-1.02)
[2019-11-30 16:22] LABS: MICROSCOPIC AUTO
[2019-11-30 16:23] LABS: ALKALINE PHOSPHATASE 65 U/L (45-117); BILIRUBIN,TOTAL 0.4 mg/dL (0.2-1.0); TOTAL PROTEIN 7.7 g/dL (6.4-8.2); TROPONIN I < 0.015 ng/mL (0.000-0.045)
[2019-11-30] MEDS ORDERED: CEFTRIAXONE 1,000 MG ONE (16:57)
[2019-11-30] MEDS ORDERED: CEFTRIAXONE 1,000 MG IM ONE (17:00)
--- NOTE | 2019-11-30 17:04 | NUR ---
PT MEDICATED PER EMAR. PT TOLERATED WELL.
--- NOTE | 2019-11-30 17:13 | NUR ---
Patient given discharge instructions and they have confirmed that they understand the instructions. Patient ambulatory with steady gait.
== END 2019-11-30 17:14 | disposition home or self-care (01) ==
LOC: ED 14:46
DX: R55 Syncope and collapse (principal); N39.0 Urinary tract infection, site not specified; R42 Dizziness and giddiness; R07.9 Chest pain, unspecified; I48.91 Unspecified atrial fibrillation; M19.90 Unspecified osteoarthritis, unspecified site; I10 Essential (primary) hypertension
CPT/HCPCS: 36415; 71045; 80053; 81001; 84484; 85025; 87077; 87086; 87186; 93005; 96372; 99285; J0696